=== PATIENT | male | born 1995 ===

== ENCOUNTER 2017-10-09 01:19 | Emergency (ER) | payer OTHER ==
[2017-10-09 02:06] VITALS: TEMP 98.3
[2017-10-09] MEDS ORDERED: Oxycodone/Acetaminophen 5/325 mg Tab PO STA (02:32)
[2017-10-09] MEDS ORDERED: Oxycodone/Acetaminophen 5/325 mg Tab ONE (02:35)
[2017-10-09] MEDS ORDERED: Lidocaine 1% Inj (20ml) IJ ONE (03:30)
--- NOTE | 2017-10-09 03:46 | ED PDOC ---
Upper Extremity Pain/Injury Time Seen by Provider: 10/09/17 02:03 Chief Complaint (Nursing): Finger,Hand,&Wrist History Per: Patient Additional Complaint(s): Pt. states earlier today he punched a wall out of anger and injured his R hand. Denies numbness, tingling. Pt. is R hand dominant. Past Medical History Reviewed: Historical Data, Nursing Documentation, Vital Signs Vital Signs: Last Vital Signs Temp 98.3 F 10/09/17 02:04 Pulse 75 10/09/17 02:04 Resp 16 10/09/17 02:04 BP 135/81 10/09/17 02:04 Pulse Ox 97 10/09/17 02:04 - Surgical History Surgical History: No Surg Hx - Family History Family History: States: No Known Family Hx - Home Medications Home Medications: Ambulatory Orders Medication Instructions Recorded Ibuprofen [Motrin Tab] 800 mg PO Q8 PRN #30 tab 10/09/17 oxyCODONE/Acetaminophen [Percocet 1 - 2 ea PO Q8 PRN #12 tab 10/09/17 5/325 mg Tab] - Allergies Allergies/Adverse Reactions: Allergies Allergy/AdvReac Type Severity Reaction Status Date / Time No Known Allergies Allergy Verified 10/09/17 02:32 Review of Systems ROS Statement: Except As Marked, All Systems Reviewed And Found Negative Physical Exam - Physical Exam Appears: Positive for: Well, Non-toxic, No Acute Distress Skin: Positive for: Normal Color, Warm. Negative for: Rash Pulses-Radial (L): 2+ Pulses-Radial (R): 2+ Extremity: Positive for: Capillary Refill (< 2 seconds of R hand), Other (R dorsal hand with moderate swelling and tenderness; able to actively move all fingers on R hand) - ECG O2 Sat by Pulse Oximetry: 97 - Progress ED Course And Treament: Percocet 1 tab PO, R hand x-ray ordered. R hand x-ray: 1. Soft tissue swelling. 2. Comminuted and angulated fracture involving the proximal to mid fourth metacarpal. 3. Dorsal dislocation of the base of the fifth metacarpal with associated fracture of the hamate Case and x-ray findings d/w Dr. Bang who recommends reduction of dislocation and pt. can f/u in his office on Wednesday to discuss need for ORIF for fracture. R hand reduced by PA with hematoma block. Pt. tolerated procedure well. R hand immobilized in orthoglass ulnar gutter splint applied by PA. CD copy of x-rays given to patient and advised to f/u with Dr. Bang on Wednesday. Disposition - Clinical Impression Clinical Impression: Metacarpal bone fracture, Dislocation of metacarpal joint of right hand, Closed hamate fracture - Patient ED Disposition Is Patient to be Admitted: No - Disposition Referrals: Mars Bang MD [Staff Provider] - [facility] [place] [Outside] Disposition: Routine/Home Disposition Time: 05:18 Condition: IMPROVED Additional Instructions: FOLLOW UP DR. BANG ON WEDNESDAY WITHOUT FAIL. RETURN TO ED IMMEDIATELY IF SYMPTOMS WORSEN. Prescriptions: Ibuprofen [Motrin Tab] 800 mg PO Q8 PRN #30 tab PRN Reason: Pain oxyCODONE/Acetaminophen [Percocet 5/325 mg Tab] 1 - 2 ea PO Q8 PRN #12 tab PRN Reason: Pain Instructions: Hand Fracture (DC) Forms: [facility] ([place]uan), [facility] ED School/Work Excuse Print Language: PORTUGUESE
[2017-10-09] MEDS ORDERED: Lidocaine 2% Inj (20ml) INFIL ONE (04:02)
[2017-10-09 05:31] VITALS: BP 127/68; PULSE 77; RESP 15; O2SAT 98
--- NOTE | 2017-10-09 09:43 | RAD ---
PROCEDURE: Right Hand Radiographs. HISTORY: trauma COMPARISON: None. FINDINGS: BONES: Comminuted fracture of the 4th metacarpal. JOINTS: Posterior dislocation of the 5th metacarpal. SOFT TISSUES: Normal. OTHER FINDINGS: None. IMPRESSION: Comminuted fracture of the 4th metacarpal. Posterior dislocation of 5th metacarpal.
--- NOTE | 2017-10-09 10:11 | RAD ---
PROCEDURE: Right Hand Radiographs. HISTORY: post reduction COMPARISON: None. FINDINGS: BONES: Improved anatomic alignment of comminuted 4th metacarpal fracture with mild persistent ulnar and dorsal apex angulation. JOINTS: Reduction of 5th metacarpal dislocation. SOFT TISSUES: Normal. OTHER FINDINGS: None. IMPRESSION: Reduction of 5th metacarpal dislocation. Improved anatomic alignment of comminuted 4th metacarpal fracture with mild persistent ulnar and dorsal apex angulation.
== END 2017-10-09 05:32 | disposition home or self-care (01) ==
LOC: H.ER 01:19
DX: S62.309A Unspecified fracture of unspecified metacarpal bone, initial encounter for closed fracture (principal); W22.01XA Walked into wall, initial encounter